=== PATIENT | female | born 1970 | race African-American/Black ===

== ENCOUNTER 2021-04-29 11:34 | Emergency (ER) | payer BC, SELFPAY ==
--- NOTE | ~2021-04-29 | XR_ITS ---
EXAMINATION: XR shoulder LT min 2V DATE: 04/29/2021 12:03 INDICATION: Left shoulder pain. TECHNIQUE: 4 views of left shoulder were obtained. COMPARISON: None. FINDINGS: Bone alignment is normal. No fracture. There is mild osteoarthritis of glenohumeral joint a nd acromioclavicular joint characterized by tiny osteophytes. IMPRESSION: 1. Mild polyarticular osteoarthritis. Reviewed, dictated and finalized at location A. [employer]
[2021-04-29 11:42] VITALS: BP 144/88; PULSE 93; RESP 14; TEMP 37; O2SAT 98
--- NOTE | 2021-04-29 12:44 | ED.GENADULT ---
HPI - General Adult General Chief complaint: Back Pain/Injury Stated complaint: pain from left shoulder/across back Source: patient Mode of arrival: ambulatory Limitations: no limitations History of Present Illness HPI narrative: 51-year-old female presented for complaint of left shoulder pain for about 2 weeks. Pain radiates from left shoulder to mid bicep area. She endorses worsening pain over the last 4 days. She states the only known possible injury was moving furniture in her office at the onset. Denies numbness, tingling, or weakness to the extremity. She endorses pain throughout the shoulder and left lateral ribs. Range of motion is decreased due to pain after movement. Taking Tylenol for pain and applying pain patches. Endorses history of C7 lesion and was scheduled to see physical therapy but has not gone. Related Data Allergies Allergy/AdvReac Type Severity Reaction Status Date / Time doxycycline Allergy Unknown Rash Verified 04/29/21 12:01 prednisone Allergy Unknown Swelling Verified 04/29/21 12:56 Tetracyclines Allergy Unknown Rash Verified 04/29/21 12:01 Review of Systems Review of Systems: CONSTITUTIONAL: Denies body aches, fever, chills, or sweats. EYES: Denies visual changes, redness, or discharge. ENT: Denies rhinorrhea, congestion, sore throat, or otalgia. CARDIOVASCULAR: Denies chest pain, palpitations, or edema. RESPIRATORY: Denies cough or dyspnea. GASTROINTESTINAL: Denies abdominal pain, nausea, vomiting, or diarrhea. GENITOURINARY: Denies dysuria or hematuria. SKIN: Denies rash, itching, or wounds. MUSCULOSKELETAL: Denies back pain, joint pain, or myalgia. NEUROLOGIC: Denies headache, numbness, tingling, or weakness. PSYCH: Denies depression or anxiety. All systems reviewed & are unremarkable except as noted in HPI and below PMFSH Comments At time of signature, I have reviewed and agree with nursing past medical, surgical, social and family history unless otherwise noted. Please see nursing chart for further information. There is no relevant family history pertinent to the presenting complaint Exam Narrative: GENERAL: Well-appearing, well-nourished, and in no acute distress. HEAD: Normocephalic, atraumatic. EYES: PERRLA, conjunctivae clear NECK: Supple. CHEST: Speaks in full sentences. No respiratory distress. HEART: Regular rate and rhythm. Normal and equal peripheral pulses. EXTREMITIES: Right shoulder has normal strength and sensation, decreased normal range of motion due to pain. No edema or ecchymosis. Normal sensation with sensitivity to light touch and pain. Anterior, posterior deltoid and lateral rib pain with palpation no open wounds, no skin tenting, no devitalized tissue or atrophy, no obvious deformity, alignment normal, nearby joints and structures intact. Distal pulses palpable and equal bilaterally, skin warm, dry. Capillary refill less than 3 seconds. SKIN: Warm, dry, no rash. NEURO: Alert and oriented x3. PSYCH: Normal mood and affect Course Course Emergency Course: X-ray reviewed with patient Patient is aware of diagnosis, understands and agrees to treatment plan. Anticipatory guidance given. Patient agrees to follow-up as directed and is aware of reasons to seek care at the emergency department. Portions of this record may have been created with voice recognition software Level of Care: Express Care Visit Vital Signs Vital signs: Vital Signs Temperature 98.6 F 04/29/21 11:42 Pulse Rate 93 04/29/21 11:42 Respiratory Rate 14 04/29/21 11:42 Blood Pressure 144/88 H 04/29/21 11:42 Pulse Oximetry 98 04/29/21 11:42 Temperature 98.6 F 04/29/21 11:42 Pulse Rate 93 04/29/21 11:42 Respiratory Rate 14 04/29/21 11:42 Blood Pressure 144/88 H 04/29/21 11:42 Pulse Oximetry 98 04/29/21 11:42 Reviewed Medical Decision Making MDM Narrative Medical decision making narrative: Per RN, pt's reaction to prednisone is leg swelling, not anaphylaxis.
== END 2021-04-29 13:05 | disposition home or self-care (01) ==
PROVIDERS: Emergency Provider Nurse Practitioner Family
DX: M25.512 Pain in left shoulder (principal); M79.622 Pain in left upper arm
CPT/HCPCS: 73030; 99213; G0463

== ENCOUNTER 2023-05-22 13:48 | Emergency (ER) | payer BC, SELFPAY ==
--- NOTE | ~2023-05-22 | XR_ITS ---
EXAMINATION: XR ankle LT min 3V DATE: 05/22/2023 14:10 INDICATION: Left ankle pain TECHNIQUE: Anteroposterior, lateral, mortise, and additional oblique view of the ankle were obtained. COMPARISON: None. FINDINGS: Bone alignment is normal. There is no fracture. The soft tissues are unremarkable. A sieve repairer ior calcaneal enthesophyte is noted. IMPRESSION: 1. No acute osseous abnormality. Reviewed, dictated and finalized at location B. [employer]
[2023-05-22 13:55] VITALS: BP 128/86; PULSE 82; RESP 18; TEMP 36.9; O2SAT 100
--- NOTE | 2023-05-22 14:50 | ED.EXTPRO ---
HPI - Extremity Problem General Chief complaint: Extremity Problem,Nontraumatic Stated complaint: left foot swelling Time Seen by Provider: 05/22/23 14:51 Source: patient Mode of arrival: ambulatory Limitations: no limitations History of Present Illness HPI Narrative: 53 yo F presents with c/o pain to posterior heel and achilles for approx. 1 wk. pt had recent injust to R knee related to work and thinks she has been compensating on R leg causing pain to L achilles. reports hx of spur to R heel that was removed by her podiatirist. all systems reviewed and negative except as noted above. Related Data Allergies Allergy/AdvReac Type Severity Reaction Status Date / Time doxycycline Allergy Unknown Rash Verified 05/22/23 14:00 prednisone Allergy Unknown Swelling Verified 05/22/23 14:00 Tetracyclines Allergy Unknown Rash Verified 05/22/23 14:00 Review of Systems Review of Systems: CONSTITUTIONAL: Denies fever, chills, or sweats. EYES: Denies visual changes, redness, or discharge. ENT: Denies rhinorrhea, congestion, sore throat, or otalgia. CARDIOVASCULAR: Denies chest pain, palpitations, or edema. RESPIRATORY: Denies cough or dyspnea. GASTROINTESTINAL: Denies abdominal pain, nausea, vomiting, or diarrhea. GENITOURINARY: Denies dysuria or hematuria. SKIN: Denies rash or itching. MUSCULOSKELETAL: Denies back pain, joint pain, or myalgia. reports pain to left Achilles and posterior heel NEUROLOGIC: Denies headache, numbness, or weakness. PSYCHIATRIC: Denies anxiety or depression. All other systems reviewed are negative, except as documented in HPI. PMFSH Comments At time of signature, agree with nursing past medical, surgical, social and family history. There is no relevant family history pertinent to the presenting complaint. Exam Narrative: GENERAL: This is a well-nourished, well-developed patient, in no apparent distress. HEAD: normocephalic, atraumatic. EYES: PERRL. Sclera clear/white. Vision is grossly intact. EARS: External ears normal NOSE: External nose normal NECK: Neck supple, non-tender without lymphadenopathy, masses or thyromegaly. CARDIOVASCULAR: Regular rate and rhythm without murmurs, gallops, or rubs. RESPIRATORY: Clear to auscultation. Breath sounds equal bilaterally. No wheezes, rales, or rhonchi. SKIN: warm, Dry, intact with no suspicious lesions or rash, good texture and turgor. NEURO: awake, alert, and oriented to person, place and time. There were no obvious focal neurologic abnormalities. EXTREMITIES: No joint tenderness, effusion, or edema noted. tenderness to L achilles tendon and posterior heel with mild swelling Course Course Level of Care: Express Care Visit Vital Signs Vital signs: Vital Signs Temperature 36.9 C 05/22/23 13:55 Pulse Rate 82 05/22/23 13:55 Respiratory Rate 18 05/22/23 13:55 Blood Pressure 128/86 05/22/23 13:55 Pulse Oximetry 100 05/22/23 13:55 Oxygen Delivery Room Air 05/22/23 13:55 Temperature 36.9 C 05/22/23 13:55 Pulse Rate 82 05/22/23 13:55 Respiratory Rate 18 05/22/23 13:55 Blood Pressure 128/86 05/22/23 13:55 Pulse Oximetry 100 05/22/23 13:55 Oxygen Delivery Room Air 05/22/23 13:55 Reviewed MDM - Extremity (Nontraumatic) MDM Narrative Medical decision making narrative: Patient is aware of diagnosis, understands and agrees to treatment plan. Anticipatory guidance given. Patient agrees to follow-up as directed and is aware of reasons to seek care at the emergency department. Portions of this record may have been created with voice recognition software discussed x-ray results with patient. Recommend ibuprofen, ice, rest. Recommend supportive shoes, no flip-flops or sandals. 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 Imaging Data My impression: Agree with radiologist Radiologist's impression: EXAMINATION: XR ankle LT min 3V DATE: 05/22/2023 14:10 ASHANTI
== END 2023-05-22 15:02 | disposition home or self-care (01) ==
PROVIDERS: Emergency Provider Nurse Practitioner Family
DX: M76.62 Achilles tendinitis, left leg (principal)
CPT/HCPCS: 73610; 99213; G0463